=== PATIENT | male | born 1970 | race Caucasian/White ===

== ENCOUNTER 2018-07-13 07:41 | Emergency (ER) | payer SELFPAY ==
--- NOTE | 2018-07-13 09:19 | RAD REPORT ---
EXAM DESCRIPTION: Letty Single View07/13/2018 8:52 am CLINICAL HISTORY: Cough COMPARISON: none FINDINGS: The lungs appear clear of acute infiltrate. The heart is normal size IMPRESSION: No acute abnormalities displayed
[2018-07-13] MEDS ORDERED: HYDROCODONE/APAP 7.5/325 MG TAB ONE (09:22)
--- NOTE | 2018-07-13 09:25 | RAD REPORT ---
EXAM DESCRIPTION: CTSpine Lumbar Wo Con07/13/2018 9:01 am CLINICAL HISTORY: Back injury with back pain and radiculopathy status post fall COMPARISON: None TECHNIQUE: Computed axial tomography lumbar spine was obtained with coronal and sagittal reconstruct ion. All CT scans are performed using dose optimization technique as appropriate and may include automated exposure control or mA/KV adjustment according to patient size. FINDINGS: No fracture is seen. No dislocation is noted. A small central disc herniation is suspected at L4-5. Ligamentum flavum and facet hypertrophy is seen . Mild central spinal stenosis is noted IMPRESSION: Negative for a lumbar fracture. A small central disc herniation L4-5 is suspected If patient continues have symptoms to suggest spinal canal pathology MRI would be recommended
--- NOTE | 2018-07-13 09:29 | RAD REPORT ---
EXAM DESCRIPTION: RAD - Hip Right 2 View - 07/13/2018 8:52 am CLINICAL HISTORY: Right hip pain FINDINGS: No fracture or dislocation is seen. Moderate osteoarthritis involves the right hip consisting of joint space narrowing, osteophytes and subchondral sclerosis. If the patient continues have symptoms to suggest an occult fracture MRI would be recommended
--- NOTE | 2018-07-13 09:32 | RAD REPORT ---
EXAM DESCRIPTION: RAD -Hand Left 3 View - 07/13/2018 8:52 am CLINICAL HISTORY: Left hand pain status post injury FINDINGS: No fracture or dislocation is seen.
--- NOTE | 2018-07-13 09:47 | ER ---
Nurse's Notes [facility] Name: Daniel Perea Age: 47 yrs Sex: Male : 1970 Arrival Date: 07/13/2018 Time: 07:46 Bed 19 Private MD: Daniel Leger Diagnosis: Fall on same level from slipping, tripping and stumbling;Acute upper respiratory infection, unspecified;Pain in right hip;Pain in left hand;Low back pain Presentation: 07/13 07:59 Presenting complaint: Patient states: has had productive cough X 1 week, this morning iw at work he was trying to cough up some phlegm but couldn't get it up, couldn't catch his breath, got dizzy, fell down 4 steps onto hi right hip, now has pain to low back and right hip area, also fell on left hand. Transition of care: patient was not received from another setting of care. Onset of symptoms was July 13, 2018. Risk Assessment: Do you want to hurt yourself or someone else? Patient reports no desire to harm self or others. Initial Sepsis Screen: Does the patient meet any 2 criteria? No. Patient's initial sepsis screen is negative. Does the patient have a suspected source of infection? No. Patient's initial sepsis screen is negative. Care prior to arrival: None. 07:59 Method Of Arrival: Ambulatory iw 07:59 Acuity: LOLA 4 iw Triage Assessment: 08:22 General: Appears in no apparent distress. comfortable, Behavior is calm, cooperative, ch appropriate for age. Pain: Complains of pain in face and back Pain currently is 7 out of 10 on a pain scale. Pain began gradually, one week ago. 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 Full function Gait is steady, Speech is normal, Facial symmetry appears normal, Facial symmetry: tongue is midline, Pupils are PERRLA. Respiratory: Airway is patent Respiratory effort is even, unlabored, Breath sounds are clear bilaterally. GI: Reports nausea. : No signs and/or symptoms were reported regarding the genitourinary system. Derm: Skin is pink, warm \T\ dry. Musculoskeletal: Circulation, motion, and sensation intact. Capillary refill < 3 seconds, in bilateral fingers. toes. Historical: - Allergies: 08:03 PENICILLINS; iw - Home Meds: 08:03 None [Active]; iw - PMHx: 08:03 MS; iw - PSHx: 08:03 Appendectomy; Cholecystectomy; iw - Immunization history:: Adult Immunizations up to date. - Ebola Screening: : Patient negative for fever greater than or equal to 101.5 degrees Fahrenheit, and additional compatible Ebola Virus Disease symptoms Patient denies exposure to infectious person Patient denies travel to an Ebola-affected area in the 21 days before illness onset No symptoms or risks identified at this time. - Social history:: Smoking status: Patient uses tobacco products, denies chronic smoking, but will smoke occasionally. Screenin:24 Abuse screen: Denies threats or abuse. Denies injuries from another. Nutritional ch screening: No deficits noted. Tuberculosis screening: No symptoms or risk factors identified. Fall Risk None identified. Assessment: 08:24 Reassessment: Patient appears in no apparent distress at this time. Patient and/or ch family updated on plan of care and expected duration. Pain level reassessed. Patient is alert, oriented x 3, equal unlabored respirations, skin warm/dry/pink. Neuro: No deficits noted. 09:47 General: Appears in no apparent distress. comfortable, Behavior is calm, cooperative, ch appropriate for age. Neuro: No deficits noted. Level of Consciousness is awake, alert, obeys commands, Oriented to person, place, time, situation. Cardiovascular: No deficits noted. Respiratory: Airway is patent Respiratory effort is even, unlabored. Vital Signs: 08:22 BP 142 / 76; Pulse 84; Resp 15; Temp 97.9; Pulse Ox 99% on R/A; Pain 6/10; ch 09:47 BP 128 / 81; Pulse 72; Resp 14; Temp 98.9; Pulse Ox 99% on R/A; Pain 6/10; ch ED Course: 07:46 Patient arrived in ED. mr 07:46 Daniel Leger MD is Private Physician. mr 07:51 [facility] kb 07:51 Kevin English MD is Attending Physician. kb 08:02 Triage completed. iw 08:12 Leilani Rodney, RN is Primary Nurse. ch 08:14 Flu and/or RSV swab sent to lab. Strep swab sent to lab. mh5 08:14 Strep Sent. 5 08:14 Flu Sent. 5 08:22 Arm band placed on left wrist. Patient placed in an exam room, on a stretcher, on pulse oximetry. 08:24 No apparent distress. Resting quietly. 08:24 No provider procedures requiring assistance completed. 08:24 Patient has correct armband on for positive identification. Bed in low position. Call light in reach. Side rails up X 1. Pulse ox on. NIBP on. 08:52 Chest Single View XRAY In Process Unspecified. EDMS 08:52 Hand Left 3 View XRAY In Process Unspecified. EDMS 08:52 Hip Right 2 View XRAY In Process Unspecified. EDMS 09:00 CT completed. Patient tolerated procedure well. Patient moved to CT via wheelchair. Patient moved back from CT. 09:01 CT Lumbar Spine Wo Con In Process Unspecified. EDMS 09:47 Patient did not have IV access during this emergency room visit. Administered Medications: 09:28 Drug: [place] (7.5 mg-325 mg) 1 tabs Route: PO; Outcome: 09:46 Discharge ordered by . kb 09:47 Discharged to home ambulatory, with family. 09:47 Condition: stable 09:47 Discharge instructions given to patient, family, Instructed on discharge instructions, follow up and referral plans. medication usage, Demonstrated understanding of instructions, follow-up care, medications, Prescriptions given X 2. 09:54 Patient left the ED. Signatures: Dispatcher [employer] EDTX Paulina Baker, RUFUS MCCRAY-Leilani Whitley, RN Beverley Franco ch, Susan sj Williams, Irene, Beverley Chatterjee RN [facility]
--- NOTE | 2018-07-13 09:47 | EDPHYS ---
Physician Documentation [facility] Name: Daniel Perea Age: 47 yrs Sex: Male : 1970 Arrival Date: 07/13/2018 Time: 07:46 Bed 19 Private MD: Daniel Leger ED Physician Kevin English HPI: 07/13 10:01 This 47 yrs old Male presents to ER via Ambulatory with complaints of Cough, kb Chest Congestion, Back Pain, Dizziness. 10:01 The patient or guardian reports cough, that is intermittent, described as mild, with no kb sputum. Onset: The symptoms/episode began/occurred 1 week(s) ago. Severity of symptoms: At their worst the symptoms were mild, moderate, in the emergency department the symptoms are unchanged. Modifying factors: The symptoms are alleviated by nothing, the symptoms are aggravated by nothing. Associated signs and symptoms: The patient has no apparent associated signs or symptoms. The patient has not experienced similar symptoms in the past. The patient has not recently seen a physician. Pt reports cough for a week. Had a coughing spell at work that made him dizzy and he fell off of a step causing pain to low back, left hand, and right hip. Historical: - Allergies: 08:03 PENICILLINS; iw - Home Meds: 08:03 None [Active]; iw - PMHx: 08:03 MS; iw - PSHx: 08:03 Appendectomy; Cholecystectomy; iw - Immunization history:: Adult Immunizations up to date. - Ebola Screening: : Patient negative for fever greater than or equal to 101.5 degrees Fahrenheit, and additional compatible Ebola Virus Disease symptoms Patient denies exposure to infectious person Patient denies travel to an Ebola-affected area in the 21 days before illness onset No symptoms or risks identified at this time. - Social history:: Smoking status: Patient uses tobacco products, denies chronic smoking, but will smoke occasionally. ROS: 10:01 Constitutional: Negative for fever, chills, and weight loss, Cardiovascular: Negative kb for chest pain, palpitations, and edema, Abdomen/GI: Negative for abdominal pain, nausea, vomiting, diarrhea, and constipation, : Negative for injury, bleeding, discharge, and swelling, Skin: Negative for injury, rash, and discoloration, Neuro: Negative for headache, weakness, numbness, tingling, and seizure. 10:01 Respiratory: Positive for cough, Negative for dyspnea on exertion, hemoptysis, orthopnea, pleurisy, shortness of breath, sputum production, wheezing. 10:01 Back: Positive for pain at rest, pain with movement, of the lumbar area. 10:01 MS/extremity: Positive for injury or acute deformity, pain, tenderness, of the right hip and left hand. Exam: 10:01 Constitutional: This is a well developed, well nourished patient who is awake, alert, kb and in no acute distress. Head/Face: Normocephalic, atraumatic. Chest/axilla: Normal chest wall appearance and motion. Nontender with no deformity. No lesions are appreciated. Cardiovascular: Regular rate and rhythm with a normal S1 and S2. No gallops, murmurs, or rubs. Normal PMI, no JVD. No pulse deficits. Respiratory: Lungs have equal breath sounds bilaterally, clear to auscultation and percussion. No rales, rhonchi or wheezes noted. No increased work of breathing, no retractions or nasal flaring. Abdomen/GI: Soft, non-tender, with normal bowel sounds. No distension or tympany. No guarding or rebound. No evidence of tenderness throughout. Skin: Warm, dry with normal turgor. Normal color with no rashes, no lesions, and no evidence of cellulitis. Neuro: Awake and alert, GCS 15, oriented to person, place, time, and situation. Cranial nerves II-XII grossly intact. Motor strength 5/5 in all extremities. Sensory grossly intact. Cerebellar exam normal. Normal gait. 10:01 Back: pain, that is moderate, of the lumbar area, ROM is painful, with all movement. 10:01 Musculoskeletal/extremity: Extremities: grossly normal except: noted in the left hand: abrasion, pain, ROM: intact in all extremities, Circulation is intact in all extremities. Sensation intact. Weight bearing: able to fully bear weight. Vital Signs: 08:22 BP 142 / 76; Pulse 84; Resp 15; Temp 97.9; Pulse Ox 99% on R/A; Pain 6/10; ch 09:47 BP 128 / 81; Pulse 72; Resp 14; Temp 98.9; Pulse Ox 99% on R/A; Pain 6/10; ch MDM: 07:57 Patient medically screened. kb 09:45 Data reviewed: vital signs, nurses notes. Data interpreted: Pulse oximetry: on room air kb is 99 %. Interpretation: normal. Counseling: I had a detailed discussion with the patient and/or guardian regarding: the historical points, exam findings, and any diagnostic results supporting the discharge/admit diagnosis, radiology results, the need for outpatient follow up, a family practitioner, to return to the emergency department if symptoms worsen or persist or if there are any questions or concerns that arise at home. 07/13 08:06 Order name: Flu; Complete Time: 08:56 kb 07/13 08:06 Order name: Strep; Complete Time: 08:41 kb 07/13 08:06 Order name: Chest Single View XRAY; Complete Time: 09:21 kb 07/13 08:06 Order name: CT Lumbar Spine Wo Con; Complete Time: 09:28 kb 07/13 08:06 Order name: Hand Left 3 View XRAY; Complete Time: 09:42 kb 07/13 08:41 Order name: Throat Culture EDMS 07/13 08:06 Order name: Hip Right 2 View XRAY; Complete Time: 09:29 kb Administered Medications: 09:28 Drug: [place] (7.5 mg-325 mg) 1 tabs Route: PO; Disposition: 12:19 Co-signature as Attending Physician, Kevin English MD. Disposition: 07/13/18 09:46 Discharged to Home. Impression: Fall on same level from slipping, tripping and stumbling, Acute upper respiratory infection, unspecified, Pain in right hip, Pain in left hand, Low back pain. - Condition is Stable. - Discharge Instructions: Back Injury Prevention, Latl-vp-Lyld, Upper Respiratory Infection, Adult, [id number]-[id number]-[id number], Back Pain, Adult, [id number]. - Prescriptions for Cyclobenzaprine 10 mg Oral Tablet - take 1 tablet by ORAL route every 8 hours As needed; 21 tablet. Diclofenac Sodium 75 mg Oral Tablet, Delayed Release (E.C.) - take 1 tablet by ORAL route 2 times per day As needed; 30 tablet. - Medication Reconciliation Form, Thank You Letter, Antibiotic Education, Prescription Opioid Use, Work release form, Family Work Release form. - Follow up: Emergency Department; When: As needed; Reason: Worsening of condition. Follow up: Private Physician; When: 2 - 3 days; Reason: Recheck today's complaints, Continuance of care, Re-evaluation by your physician. Signatures: Dispatcher [employer] Paulina Martinez, RUFUS MCCRAY-Leilani Whitley, RN RN Brooke Shipley RN RN Kevin English MD MD gs Corrections: (The following items were deleted from the chart) 09:54 09:46 07/13/2018 09:46 Discharged to Home. Impression: Fall on same level from slipping, tripping and stumbling; Acute upper respiratory infection, unspecified; Pain in right hip; Pain in left hand; Low back pain. Condition is Stable. Forms are Medication Reconciliation Form, Thank You Letter, Antibiotic Education, Prescription Opioid Use. Follow up: Emergency Department; When: As needed; Reason: Worsening of condition. Follow up: Private Physician; When: 2 - 3 days; Reason: Recheck today's complaints, Continuance of care, Re-evaluation by your physician. kb
== END 2018-07-13 09:54 | disposition home or self-care (01) ==
LOC: ER 07:41
DX: J06.9 Acute upper respiratory infection, unspecified (principal); M54.5 Low back pain; M25.551 Pain in right hip; M79.642 Pain in left hand; W01.0XXA Fall on same level from slipping, tripping and stumbling without subsequent striking against object, initial encounter; Y93.89 Activity, other specified; Y92.89 Other specified places as the place of occurrence of the external cause; Y99.8 Other external cause status; Z88.0 Allergy status to penicillin
CPT/HCPCS: 71045; 72131; 87070; 87081; 87804; 99284